=== PATIENT | female | born 2000 | race African-American/Black ===

== ENCOUNTER 2022-08-28 04:26 | Emergency (ER) | payer MEDICAID, OTHER ==
[~2022-08-28] VITALS: Ht 170.2 cm; Wt 60.0 kg
[2022-08-28] MEDS ORDERED: BACITRACIN ZINC OINT UDPKT TOP ONE (05:00)
[2022-08-28] MEDS ORDERED: LIDOCAINE HCL/PF 1% 10 MG/ML 5ML VIAL INFIL ONE (05:00)
[2022-08-28] MEDS ORDERED: ACETAMINOPHEN 325MG TABLET PO ONE (05:00)
[2022-08-28] MEDS ORDERED: TETANUS, DIPHTHERIA, PERTUSSIS VAC/PF 0.5ML (>10YR OLD) IM ONE (05:00)
[2022-08-28] MEDS ORDERED: IBUP-2029 MT (07:45)
[2022-08-28] MEDS ORDERED: CEPH500T MT (07:45)
[2022-08-28 08:45] VITALS: BP 118/91
== END 2022-08-28 08:46 | disposition home or self-care (01) ==
LOC: ER 04:26
DX: S01.81XA Laceration without foreign body of other part of head, initial encounter (principal); S50.02XA Contusion of left elbow, initial encounter; V49.49XA Driver injured in collision with other motor vehicles in traffic accident, initial encounter; Y93.89 Activity, other specified; Y92.89 Other specified places as the place of occurrence of the external cause; Y99.8 Other external cause status; J45.909 Unspecified asthma, uncomplicated
CPT/HCPCS: 12013; 70450; 73080; 81025; 90471; 90715; 99284; J3490; Z7610